=== PATIENT | female | born 1990 | race Caucasian/White ===

== ENCOUNTER 2023-11-14 16:58 | Emergency (ER) | payer BC ==
[2023-11-14] MEDS ORDERED: Ondansetron PF 4 MG/2 ML Vial ONE ×2 (18:09→20:15)
[2023-11-14] MEDS ORDERED: Ketorolac Tromethamine 30 MG (1 mL) VIAL ONE (18:09)
[2023-11-14 18:20] LABS: Bilirubin Neg (Negative); Blood, Urine 150 (Negative); Clarity Slightly Cloudy (Clear); Glucose, Urine (Dipstick) Normal (Negative); Ketone, Urine 5 mg/dL (Negative); Leukocyte 500 (Negative); Nitrite Negative (Negative); Protein, Urine (Dipstick) 30 mg/dl (Neg-Trace)
[2023-11-14 18:33] LABS: Bacteria/HPF 2+ HPF (None Seen); CAUTI Indications for Culture Pelvic or flank pain; Calcium Oxalate Crystals 2+ HPF (None Seen); Transitional Epithelial 0-3 HPF (None Seen); WBC/HPF Greater than 50 HPF (0-3)
[2023-11-14 18:34] LABS: Urine Culture Reflex Yes Yes
[2023-11-14 18:42] LABS: BHCG - Serum Negative (NEGATIVE); Pregs Control Background? CLEAR/WHITE (CLR/WHITE); Pregs Control Bar Appear? YES (CONTROL BAR)
[2023-11-14 18:47] LABS: #Basophils 0.01 10x3/uL (0.0-0.2); #Eosinphils 0.08 10x3/uL (0.0-0.5); #Monocytes 0.47 10x3/uL (0.0-1.1); #Neutrophils 4.84 10x3/uL (1.5-8.4); %Basophils 0.1 % (0.0-2.0); %Lymphocytes 31.3 % (18.0-47.0); %Monocytes 5.9 % (0.0-10.0); %Neutrophils 61.2 % (40.0-75.0); Hematocrit 42.7 % (34.9-44.5); Hemoglobin 15.6 g/dL (12.0-15.5); Mean Corpuscular HGB CONC 36.5 g/dL (32.0-36.0); Mean Corpuscular Hemoglobin 32.8 pg (27.0-33.0); Mean Corpuscular Volume 89.7 fl (81.6-98.3); Mean Platelet Volume 11.4 fl (7.4-10.4); Platelet Count 230 10x3/uL (150-450); RBC Distribution Width 12.2 % (11.5-14.5); Red Blood Cell (RBC) Count 4.76 10x6/uL (3.90-5.03); White Blood Cell (WBC) Count 7.9 10x3/uL (3.5-10.5)
[2023-11-14 18:51] LABS: ALT (SGPT) 35 U/L (8-55); AST (SGOT) 26 U/L (5-34); Albumin 4.2 g/dL (3.5-5.0); Alkaline Phosphatase 63 U/L (40-110); Anion Gap 17 mmol/L (10-20); BUN (Urea Nitrogen) 12 mg/dL (7.0-18.7); Bilirubin, Total 1.3 mg/dL (0.2-1.2); Calc. Creatinine Clearance 0 mL/min (70-130); Calcium 9.8 mg/dL (7.8-10.44); Carbon Dioxide 20 mmol/L (22-29); Chloride 106 mmol/L (98-107); Estimated GFR 76; Globulin 3.1 g/dL (2.4-3.5); Glucose 99 mg/dL (70-105); Potassium 3.9 mmol/L (3.5-5.1); Protein, Total 7.3 g/dL (6.0-8.3); Sodium 139 mmol/L (136-145)
[2023-11-14] MEDS ORDERED: Morphine 4 MG/ML VIAL ONE (20:01)
== END 2023-11-14 22:54 | disposition home or self-care (01) ==
LOC: CSHERS 16:58
DX: N20.1 Calculus of ureter (principal); I10 Essential (primary) hypertension
CPT/HCPCS: 74176; 80053; 81001; 84703; 85025; 87086; 96374; 96375; 96376; J1885; J2270; J2405